=== PATIENT | male | born 2005 | race Caucasian/White ===

== ENCOUNTER 2025-01-19 01:02 | Emergency (ER) | payer MEDICAID ==
[~2025-01-19] VITALS: Ht 172.7 cm; Wt 77.0 kg
[2025-01-19 01:05] VITALS: O2SAT 100
[2025-01-19] MEDS: LORAZEPAM 1MG TABLET PO ONE (01:50)
[2025-01-19 04:14] VITALS: TEMP 37.1
[2025-01-19 06:18] VITALS: BP 111/64; PULSE 91; RESP 17; O2SAT 98
== END 2025-01-19 05:58 | disposition home or self-care (01) ==
LOC: ER 01:02
DX: F41.9 Anxiety disorder, unspecified (principal); F12.90 Cannabis use, unspecified, uncomplicated; R00.0 Tachycardia, unspecified
CPT/HCPCS: 93005; 99285